=== PATIENT | female | born 1970 | race Caucasian/White ===

== ENCOUNTER 2019-04-03 07:57 | Day surgery (SDC) | payer MEDICARE, MEDICAID ==
[2019-03-30 14:53] LABS: BASOPHILS % (AUTO) 0.7 % (0-1); EOSINOPHILS # (AUTO) 0.2 X10'3 (0-0.9); EOSINOPHILS % (AUTO) 3.3 % (0-6); LYMPHOCYTES # (AUTO) 1.4 X10'3 (1.1-4.8); LYMPHOCYTES % (AUTO) 24.9 % (21-51); MEAN CORPUSCULAR HEMOGLOBIN 25.8 PG (27.0-31.0); MEAN CORPUSCULAR HGB CONC 31.9 g/dL (33.0-36.5); MEAN PLATELET VOLUME 9.2 FL (7.4-10.4); MONOCYTES # (AUTO) 0.4 X10'3 (0-0.9); MONOCYTES % (AUTO) 7.7 % (2-12); NEUTROPHILS # (AUTO) 3.7 X10'3 (1.8-7.7); NEUTROPHILS % (AUTO) 63.4 % (42-75); PRE OP HEMATOCRIT 41.2 % (35.0-45.0); PRE OP HEMOGLOBIN 13.1 g/dL (12.0-16.0); PRE OP PLATELET COUNT 245 X10'3 (140-440); RED BLOOD COUNT 5.09 X10'6 (4.20-5.60)
[2019-03-30 14:53] LABS: CLARITY,URINE SLIGHTLY CLOUDY (Clear); COLOR,URINE YELLOW (Yellow); GLUCOSE, URINE NEGATIVE (Neg); KETONES,URINE NEGATIVE (Neg); LEUKOCYTE ESTERASE ,URINE NEGATIVE (Neg); NITRITES, URINE NEGATIVE (Neg); OCCULT BLOOD,URINE LARGE (Neg); PH,URINE 5.5 (4.8-8.0); PROTEIN,URINE TRACE mg/dl (Neg)
[2019-03-30 15:00] LABS: UA COLLECTION TYPE NON-SPECIFIED
[2019-03-30 15:01] LABS: BACTERIA,URINE FEW /HPF (Neg); MUCUS STRANDS MANY /LPF (Neg); SQUAMOUS EPITHELIAL CELL,UR FEW /LPF (FEW); WBC,URINE 0-4 /HPF (0-4)
[2019-03-30 15:02] LABS: HYALINE CASTS 0-3 /LPF (NEGATIVE)
[2019-03-30 15:02] LABS: HCG SERUM QL NEGATIVE
[2019-03-30 15:03] LABS: PRE OP PROTIME 10.4 SECONDS (9.0-12.0)
[2019-03-30 15:07] LABS: ALBUMIN 4.1 G/DL (3.4-5.0); ALBUMIN/GLOBULIN RATIO 1.1 (1.1-1.5); ALKALINE PHOSPHATASE 55 IU/L (46-116); BLOOD UREA NITROGEN 11 MG/DL (7-18); BUN/CREATININE RATIO 13.6 (6.6-38.0); CALCIUM 9.1 MG/DL (8.5-10.1); CHLORIDE 107 MMOL/L (99-107); CREATININE 0.81 MG/DL (0.40-0.90); PRE OP ALT 28 U/L (30-65); PRE OP ANION GAP 9 (8-16); PRE OP AST 16 U/L (10-37); PRE OP BILIRUB, TOTAL 0.4 MG/DL (0.0-1.0); PRE OP GLUCOSE 90 MG/DL (70-104); PRE OP POTASSIUM 3.7 MMOL/L (3.4-5.1); PRE OP SODIUM 142 MMOL/L (135-145); TOTAL CARBON DIOXIDE 25.9 MMOL/L (24-32); eGFR 75 ML/MIN
[2019-03-30 15:56] LABS: LARGE PLATELETS FEW; PLATELET ESTIMATE NORMAL
[2019-03-30 15:57] LABS: ANISOCYTOSIS 3+
[2019-03-30 15:58] LABS: MICROCYTOSIS 1+
[2019-04-03] VITALS (11 sets, daily range): BP systolic 131–154; BP diastolic 60–81
[~2019-04-03] VITALS: Ht 175.3 cm; Wt 94.8 kg
[~2019-04-03 07:57] MED LIST: FERR324T4 PO; TRAN650T5 PO; ceFOXitin 2 GM ADDVANTGE BAG 50 ML IV ONE; famotidine 20mg tablet PO ONE; heparin, porcine 5000 units/ml vial SQ ONE; ringers solution, lacted 1,000 ML IV SCH; tranexamic acid inj. 1,000 MG in normal saline 100ml IV soln 100 ML IV ONE
[2019-04-03 09:59] LABS: PRE OP PROTIME 10.6 SECONDS (9.0-12.0)
[2019-04-03] MEDS ORDERED: BUPIVAcaine/PF 2.5 mg/ml (0.25%) 30ml vial ONE (10:34)
[2019-04-03] MEDS ORDERED: triamcinolone acetonide 40mg/ml inj IM ONE (10:35)
[2019-04-03] MEDS ORDERED: ringers solution, lacted 1,000 ML IV SCH (10:40)
[2019-04-03] MEDS ORDERED: fentaNYL/PF 50MCG/1 ML 2ML syringe IV PRN ×2 (10:40)
[2019-04-03] MEDS ORDERED: ondansetron/PF 4mg/2ml inj IV PRN (10:40)
[2019-04-03] MEDS ORDERED: hydrALAZINE 20mg/ml inj. IV PRN (10:40)
[2019-04-03] MEDS ORDERED: labetalol 20mg/4ml (5mg/ml) syringe IV PRN (10:40)
[2019-04-03] MEDS ORDERED: morphine 4 MG/ML inj SYRINge IV PRN ×2 (10:40)
[2019-04-03] MEDS ORDERED: propofol inj 20 ML IV ONE (10:51)
[2019-04-03] MEDS ORDERED: midazolam 2 mg/2 ml injection ONE (10:51)
[2019-04-03] MEDS ORDERED: LIDOcaine 2% (20mg/ml) 5ml vial ONE (10:51)
[2019-04-03] MEDS ORDERED: fentaNYL /PF 50mcg/ml 5ml ampule ONE (10:51)
[2019-04-03] MEDS ORDERED: rocuronium 10mg/ml inj IV ONE ×2 (10:52→12:29)
[2019-04-03] MEDS ORDERED: glycopyrrolate 0.2mg/ml inj ONE (10:52)
[2019-04-03] MEDS ORDERED: ondansetron/PF 4mg/2ml inj ONE (10:52)
[2019-04-03] MEDS ORDERED: dexamethasone sod phosphate 10mg/ml inj ONE (11:00)
[2019-04-03] MEDS ORDERED: neostigmine methylsulfate 1 MG/ML 10ml vial ONE (11:00)
[2019-04-03] MEDS ORDERED: sevoflurane 250ml liquid IH ONE (11:00)
[2019-04-03] MEDS ORDERED: triamcinolone acetonide 40mg/ml inj IJ ONE ×2 (11:00→11:15)
[2019-04-03] MEDS ORDERED: acetaminophen 1,000mg/100ml IV 100 ML IV ONE (13:57)
--- NOTE | 2019-04-03 14:20 | NUR ---
[facility] accompanied by Anesthesiologist ASHLEY and report given by Anesthesiolgist. PT SLEEPY, OXYGENATING WELL ON 10 LPM O2 VIA MASK, NO RESP DISTRESS. DENIES NAUSEA, C/O MODERATE INCISIONAL PAIN. MEDICATED PRN, SEE EMAR. 4 SMALL ABDOMINAL INCISIONS CLOSED WITH DERMABOND, WELL APPROXIMATED. VSS.
[2019-04-03] MEDS ORDERED: HYDROcodone/acetaminophen 10/325mg tab PO ONE (15:30)
--- NOTE | 2019-04-03 16:00 | NUR ---
PT AMBULATED, WAS ABLE TO VOID WITHOUT DIFFICULTY. PAIN CONTROLLED, TOLERABLE PER THE PT. PT DECLINED THE PRESCRIPTION FOR NORCO. STATES SHE WILL TAKE IBUPROFEN AT HOME. VSS. TOLERATING PO FLUID WELL. DC INSTRUCTIONS EXPLAINED TO PT AND HER DAUGHTER, THEY VERBALIZED UNDERSTANDING. DCD IN STABLE CONDITION, TAKEN TO CAR VIA WC.
== END 2019-04-03 16:00 | disposition home or self-care (01) ==
LOC: PAS 07:57
PROVIDERS: ATTEND Obstetrics & Gynecology
DX: N80.0 Endometriosis of uterus (principal); D25.9 Leiomyoma of uterus, unspecified; N83.201 Unspecified ovarian cyst, right side; N84.1 Polyp of cervix uteri; N73.6 Female pelvic peritoneal adhesions (postinfective); L91.0 Hypertrophic scar; F32.9 Major depressive disorder, single episode, unspecified; E66.9 Obesity, unspecified; Z68.30 Body mass index [BMI] 30.0-30.9, adult; Z86.718 Personal history of other venous thrombosis and embolism; Z88.1 Allergy status to other antibiotic agents; Z79.899 Other long term (current) drug therapy
CPT/HCPCS: 11403; 12031; 36415; 58573; 80053; 81001; 82948; 84703; 85025; 85610; 85730; 86885; 86900; 86901; 86920; 93005; C1758; J0131; J0694; J1100; J2001; J2250; J2405; J2704; J2710; J3010; J3301; J3490; J7120; 88305; 88307; A4618; A7000; J1644